=== PATIENT | male | born 1990 | race Caucasian/White ===

== ENCOUNTER 2016-04-27 13:01 | Emergency (ER) | payer MEDICAID | END 2016-04-27 15:28 | disposition left against medical advice (07) | LOC: D.ER 13:01 | DX: R10.84 Generalized abdominal pain (principal) ==

== ENCOUNTER 2016-04-27 21:56 | Emergency (ER) | payer MEDICAID ==
[2016-04-27 22:45] LABS: UDS - AMPHET POSITIVE QUAL (NEGATIVE); UDS - BARB NEGATIVE QUAL (NEGATIVE); UDS - BENZO POSITIVE QUAL (NEGATIVE); UDS - COCAINE NEGATIVE QUAL (NEGATIVE); UDS - METH NEGATIVE QUAL (NEGATIVE); UDS - OPIATE NEGATIVE QUAL (NEGATIVE); UDS - PCP NEGATIVE QUAL (NEGATIVE); UDS - THC POSITIVE QUAL (NEGATIVE)
[2016-04-27 22:58] LABS: APPEARANCE CLEAR (CLEAR); BILIRUBIN NEGATIVE (NEGATIVE); COLOR DK YELLOW (YELLOW); GLUCOSE NEGATIVE (NEGATIVE); KETONE NEGATIVE (NEGATIVE); LEUKOCYTE ESTERASE TRACE (NEGATIVE); NITRITE NEGATIVE (NEGATIVE); PROTEIN 1+ mg/dL (NEGATIVE); UROBILINOGEN NORMAL (NORMAL)
[2016-04-27 22:59] LABS: AMORPHOUS SEDIMENT <1+ /lpf (NONE SEEN); BACTERIA FEW /hpf (NONE SEEN); EPITHELIAL CELLS 0-5 /hpf (0-5); MUCUS >1+ /lpf (NONE SEEN); RED CELLS - URINE 0-5 /hpf (0-5); WHITE CELLS - URINE 0-5 /hpf (0-5)
[2016-04-27 23:01] LABS: BASOPHILS 0.1 % (0.0-2.0); EOSINOPHILS 0 % (0-7); HEMATOCRIT 48.9 % (42.0-54.0); HEMOGLOBIN 16.7 g/dL (13.5-17.5); IMMATURE GRANULOCYTES 0.1 % (0-5); LYMPHOCYTES 13.9 % (15-50); MCH 31.5 pg (26.0-34.0); MCHC 34.2 g/dL (31.0-37.0); MCV 92.3 fL (80.0-100.0); MEAN PLATELET VOLUME 10.5 fL (7.4-10.4); MONOCYTES 14.6 % (2-11); NEUTROPHILS 71.3 % (40-80); PLATELET COUNT 251 10x3/uL (130-400); RDW 13.5 % (11.5-14.5); WBC 8.3 10x3/uL (4.8-10.8)
[2016-04-27 23:11] LABS: ALBUMIN 4.3 g/dL (3.4-5.0); ALKALINE PHOSPHATASE 73 U/L (46-116); ALT (SGPT) 43 U/L (10-68); AMYLASE - SERUM 30 U/L (25-115); BILIRUBIN - TOTAL 1.68 mg/dL (0.2-1.3); CALC OSMOLALITY 278 mosm/kg (275-300); CALCIUM 8.9 mg/dL (8.5-10.1); CARBON DIOXIDE 27.1 mmol/L (21.0-32.0); CHLORIDE - SERUM 102 mmol/L (98-107); GLUCOSE 103 mg/dL (74-106); LIPASE 83 U/L (73-393); POTASSIUM - SERUM 4.6 mmol/L (3.5-5.1); PROTEIN - SERUM 8.1 g/dL (6.4-8.2); SODIUM 139 mmol/L (136-145); UREA NITROGEN 15 mg/dL (7-18); eGFR NON AFRICAN AMERICAN > 90 mL/min (90-120)
== END 2016-04-28 00:57 | disposition home or self-care (01) ==
LOC: D.ER 21:56
PROVIDERS: Family Medicine
DX: R10.9 Unspecified abdominal pain (principal); F41.9 Anxiety disorder, unspecified

== ENCOUNTER 2017-08-10 12:10 | Emergency (ER) | payer MEDICAID ==
[~2017-08-10] VITALS: Ht 180.3 cm; Wt 95.5 kg
[2017-08-10 12:30] VITALS: Ht 180.3 cm; Wt 95.5 kg
[2017-08-10 13:01] LABS: APPEARANCE CLEAR (CLEAR); BILIRUBIN NEGATIVE (NEGATIVE); COLOR YELLOW (YELLOW); GLUCOSE NEGATIVE (NEGATIVE); KETONE NEGATIVE (NEGATIVE); NITRITE NEGATIVE (NEGATIVE); PROTEIN NEGATIVE (NEGATIVE); SPECIFIC GRAVITY 1.005 (1.005-1.020); UROBILINOGEN NORMAL (NORMAL)
[2017-08-10] MEDS ORDERED: NORCO 7.5/325 T1 TA1 PO (14:09)
[2017-08-10] MEDS ORDERED: PREDNISONE20 MG PO (14:09)
[2017-08-10 15:25] VITALS: BP 128/85
== END 2017-08-10 15:25 | disposition home or self-care (01) ==
LOC: D.ER 12:10
PROVIDERS: Family Medicine
DX: L27.1 Localized skin eruption due to drugs and medicaments taken internally (principal); F17.200 Nicotine dependence, unspecified, uncomplicated

== ENCOUNTER 2017-09-19 09:29 | Emergency (ER) | payer MEDICAID ==
[~2017-09-19] VITALS: Ht 180.3 cm; Wt 99.1 kg
[~2017-09-19 09:29] MED LIST: NORCO 7.5/325 T1 TA1 PO; PREDNISONE20 MG PO
[2017-09-19 09:36] VITALS: Ht 180.3 cm; Wt 99.1 kg
[2017-09-19 10:26] LABS: BASOPHILS 0.2 % (0-2); EOSINOPHILS 0.6 % (0-7); HEMATOCRIT 42.3 % (42.0-54.0); HEMOGLOBIN 14.9 g/dL (13.5-17.5); LYMPHOCYTES 27.8 % (15-50); MCH 32.3 pg (26.0-34.0); MCHC 35.2 g/dL (31.0-37.0); MCV 91.8 fL (80.0-100.0); MEAN PLATELET VOLUME 9.8 fL (7.4-10.4); MONOCYTES 14.6 % (2-11); NEUTROPHILS 56.8 % (40-80); PLATELET COUNT 237 10x3/uL (130-400); RBC 4.61 10x6/uL (4.20-6.10); RDW 12.7 % (11.5-14.5); WBC 6.3 10x3/uL (4.8-10.8)
[2017-09-19 10:45] LABS: ALKALINE PHOSPHATASE 79 U/L (46-116); ALT (SGPT) 31 U/L (10-68); BILIRUBIN - TOTAL 2.43 mg/dL (0.2-1.3); CALC OSMOLALITY 279 mosm/kg (275-300); CALCIUM 8.6 mg/dL (8.5-10.1); CARBON DIOXIDE 30.8 mmol/L (21.0-32.0); CHLORIDE - SERUM 101 mmol/L (98-107); GLUCOSE 106 mg/dL (74-106); POTASSIUM - SERUM 3.1 mmol/L (3.5-5.1); PROTEIN - SERUM 7.5 g/dL (6.4-8.2); SODIUM 139 mmol/L (136-145); UREA NITROGEN 17 mg/dL (7-18); eGFR NON AFRICAN AMERICAN > 90 mL/min (90-120)
[2017-09-19 10:59] LABS: AMYLASE - SERUM 25 U/L (25-115); LIPASE 89 U/L (73-393)
[2017-09-19 12:50] LABS: APPEARANCE HAZY (CLEAR); COLOR ORANGE (YELLOW); GLUCOSE NEGATIVE (NEGATIVE); KETONE SMALL mg/dL (NEGATIVE); NITRITE NEGATIVE (NEGATIVE); PROTEIN TRACE mg/dL (NEGATIVE); SPECIFIC GRAVITY 1.025 (1.005-1.020)
[2017-09-19 12:51] LABS: AMORPHOUS SEDIMENT <1+ /lpf (NONE SEEN); BACTERIA FEW /hpf (NONE SEEN); BILIRUBIN NEGATIVE (NEGATIVE); EPITHELIAL CELLS OCC /hpf (0-5); MUCUS >1+ /lpf (NONE SEEN); WHITE CELLS - URINE RARE /hpf (0-5)
[2017-09-19] MEDS ORDERED: ZOFRAN ODT4 MG/UDTAB PO (13:30)
[2017-09-19] MEDS ORDERED: BENTYL 20 MG TA20 MG PO (13:30)
[2017-09-19 14:06] VITALS: BP 121/76
== END 2017-09-19 14:07 | disposition home or self-care (01) ==
LOC: D.ER 09:29
PROVIDERS: Family Medicine
DX: K52.9 Noninfective gastroenteritis and colitis, unspecified (principal); R11.2 Nausea with vomiting, unspecified; F17.200 Nicotine dependence, unspecified, uncomplicated

== ENCOUNTER 2018-12-01 22:33 | Emergency (ER) | payer MEDICAID ==
[~2018-12-01] VITALS: Ht 180.3 cm; Wt 100.0 kg
[~2018-12-01 22:33] MED LIST changes: +BENTYL 20 MG TA20 MG PO; +ZOFRAN ODT4 MG/UDTAB PO
[2018-12-01 22:51] VITALS: Ht 180.3 cm; Wt 100.0 kg
[2018-12-01] MEDS ORDERED: CYCLOBENZAPRINE10 MG PO (23:18)
[2018-12-02 00:54] VITALS: BP 93/57
== END 2018-12-02 00:54 | disposition home or self-care (01) ==
LOC: D.ER 22:33
DX: S13.4XXA Sprain of ligaments of cervical spine, initial encounter (principal); S16.1XXA Strain of muscle, fascia and tendon at neck level, initial encounter; V89.2XXA Person injured in unspecified motor-vehicle accident, traffic, initial encounter; F17.210 Nicotine dependence, cigarettes, uncomplicated